=== PATIENT | female | born 1975 | race African-American/Black ===

== ENCOUNTER 2020-06-04 20:12 | Emergency (ER) | payer SELFPAY ==
[2020-06-04] MEDS ORDERED: predniSONE 20 MG TABLET PO STA (20:55)
[2020-06-04] MEDS ORDERED: IPRATROPIUM/ALBUTEROL 3 ML NEB INH STA (20:55)
[2020-06-04] MEDS ORDERED: ALBUTEROL NEB 2.5 MG/3 ML INH STA (21:29)
[2020-06-04 22:35] VITALS: BP 169/110
--- NOTE | 2020-06-04 22:38 | ED Physician Documentation ---
History of Present Illness - Stated complaint Stated Complaint: SOA - Chief complaint Chief Complaint: Resp - History obtained from History obtained from: Patient - Additonal information Additional information: Patient comes emergency department complaining of an asthma exacerbation, which she believes was set off by the climate here in [place]. The patient has just traveled from [place] to be with her family and states that when she got off the plane, she began to notice that her breathing was acting Up, but when she got into the outside air, and got even worse. Patient is on several medica tions for asthma, including 3 times daily nebulizer treatments. She is not a smoker. She states that she has brought her medications with her, but they did not seem to be improving her symptoms today, so she came in. The patient states that she is almost out of her medications, as well. No fevers or chills. No cough. No symptoms that are unusual in terms of the patient's asthma exacerbations. No other complaints at this time. Review of Systems Ten Systems: 10 systems reviewed and negative Constitutional: reports: Reviewed and negative Eyes: reports: Reviewed and negative Ears: reports: Reviewed and negative Nose: reports: Reviewed and negative Throat: reports: Reviewed and negative Cardiac: reports: Reviewed and negative Respiratory: reports: Dyspnea GI: reports: Reviewed and negative : reports: Reviewed and negative Skin: reports: Reviewed and negative Musculoskeletal: reports: Reviewed and negative Neurologic: reports: Reviewed and negative Psychiatric: reports: Reviewed and negative Endocrine: reports: Reviewed and negative Immunocompromised: reports: Reviewed and negative PD PAST MEDICAL HISTORY - Past Medical History Past Medical History: Yes Cardiovascular: Hypertension Respiratory: Asthma Neuro: None Endocrine/Autoimmune: Type 2 diabetes, HyPOthyroidism GI: None 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 : None HEENT: None Psych: None Musculoskeletal: None Derm: None - Present Medications Home Medications: Ambulatory Orders Medication Instructions Recorded Confirmed Albuterol 06/04/20 Albuterol 2.5 mg INH Q4H PRN #30 neb 06/04/20 Albuterol Sulfate [Proair Hfa 06/04/20 Inhaler] Albuterol Sulfate [Proair Hfa 06/04/20 06/04/20 Inhaler] Albuterol Sulfate [Proair Hfa 1 - 2 puffs INH Q4H PRN #1 inhaler 06/04/20 Inhaler] Colchicine [Colcrys] 06/04/20 Cyclobenzaprine [Flexeril] PRN 06/04/20 06/04/20 Hydrocortisone 1% Oint 06/04/20 [Hydrocortisone] Losartan [Cozaar] 06/04/20 Metoprolol Tartrate [Lopressor] 06/04/20 Mometasone/Formoterol [Dulera 100 06/04/20 Mcg-5 Mcg Inhaler] Mometasone/Formoterol [Dulera 100 13 gm IH BID #1 hfa.aer.ad 06/04/20 Mcg-5 Mcg Inhaler] amLODIPine [Norvasc] 06/04/20 hydroCHLOROthiazide [Hydrodiuril] 06/04/20 06/04/20 - Allergies Allergies/Adverse Reactions: Allergies Allergy/AdvReac Type Severity Reaction Status Date / Time pollen extracts Allergy Mild Hives Verified 06/04/20 20:24 chicken derived Allergy Respiratory Verified 06/04/20 20:25 ketchup Allergy Respiratory Verified 06/04/20 20:25 mustard Allergy Respiratory Verified 06/04/20 20:25 pineapple Allergy Respiratory Verified 06/04/20 20:25 shellfish derived Allergy Respiratory Verified 06/04/20 20:25 - Social History Does the pt smoke?: No Smoking Status: Never smoker PD ED PE NORMAL - Vitals Vital signs reviewed: Yes - General General: Alert and oriented X 3, No acute distress - HEENT HEENT: Atraumatic, PERRL, EOMI, Moist mucous membranes - Neck Neck: Supple, no meningeal sign - Cardiac Cardiac: RRR, No murmur - Respiratory Respiratory: No respiratory distress, Other (Moderate expiratory wheezing throughout bilateral lung montes.) - Abdomen Abdomen: Soft, Non tender, Non distended - Derm Derm: Normal color, Warm and dry, No rash - Extremities Extremities: No deformity, No edema, No calf tenderness / cord - Neuro Neuro: Alert and oriented X 3, placement interviewer 2-12 intact, No motor deficit, Normal speech - Psych Psych: Normal mood, Normal affect Results - Vitals Vitals: Vital Signs - 24 hr 06/04/20 06/04/20 06/04/20 20:14 21:19 22:35 Temperature 36.5 C Heart Rate 101 H 91 108 H Respiratory 22 20 Rate Blood Pressure 174/102 H 169/110 H O2 Saturation 97 99 Oxygen O2 Source Room air PD MEDICAL DECISION MAKING - ED course Complexity details: considered differential, d/w patient ED course: The patient was treated with a DuoNeb and 2 albuterol nebs, as well. She was also given a dose of prednisone in the ED. The patient was found to be feeling quite a bit better after this. I have refilled all of her asthma medications. We have discussed the usual indications for return. Departure - Departure Disposition: 01 Home, Self Care Clinical Impression: Asthma exacerbation Condition: Stable Instructions: Asthma Dc Prescriptions: Albuterol 2.5 mg INH Q4H PRN #30 neb PRN Reason: Wheezing Mometasone/Formoterol [Dulera 100 Mcg-5 Mcg Inhaler] 13 gm IH BID #1 hfa.aer.ad Albuterol Sulfate [Proair Hfa Inhaler] 1 - 2 puffs INH Q4H PRN #1 inhaler PRN Reason: Shortness Of Air/Wheezing Discharge Date/Time: 06/04/20 22:42
== END 2020-06-04 22:42 | disposition home or self-care (01) ==
LOC: ED 20:12
DX: J45.901 Unspecified asthma with (acute) exacerbation (principal); I10 Essential (primary) hypertension; E11.9 Type 2 diabetes mellitus without complications
CPT/HCPCS: 94640; 99283; 99284; J7512

== ENCOUNTER 2020-06-08 18:21 | Observation (INO) | payer SELFPAY ==
[2020-06-08] MEDS ORDERED: DEXAMETHASONE 10 MG/ML VIAL IV STA (19:14)
[2020-06-08] MEDS ORDERED: ALBUTEROL NEB 2.5 MG/3 ML INH STA (19:14)
[2020-06-08] MEDS ORDERED: IPRATROPIUM/ALBUTEROL 3 ML NEB INH STA (19:14)
--- NOTE | 2020-06-08 19:22 | ED Physician Documentation ---
History of Present Illness - Stated complaint Stated Complaint: ASTHMA ATTACK - Chief complaint Chief Complaint: Resp - History obtained from History obtained from: Patient - Additonal information Additional information: Patient returns emergency department after being seen about 5 days ago for chief complaint of asthma exacerbation. The patient is visiting here from [place] and states that ever since she came here and started to breathe the air here, she felt as though her asthma was bothering her more. Patient states that since being seen here on Wednesday night, she was doing a little bit better, but then yesterday, began to feel after dinner as though she was having another asthma laceration. Patient states she is tried taking her medications over the past 24 hours, but they do not seem to be helping. Patient states she was not able to get her Dulera filled because it is very expensive here, and opted to wait until she gets back to [place]. She has been taking her nebulizer treatments and albuterol inhaler, however. Patient states that she has not had any fevers and is not coughing up any sputum. She states her symptoms feel like previous asthma exacerbations. No known Covid exposure. No other complaints at this time. Review of Systems Ten Systems: 10 systems reviewed and negative Constitutional: reports: Reviewed and negative Eyes: reports: Reviewed and negative Ears: reports: Reviewed and negative Nose: reports: Reviewed and negative Throat: reports: Reviewed and negative Cardiac: reports: Reviewed and negative Respiratory: reports: Dyspnea, Wheezing GI: reports: Reviewed and negative : reports: Reviewed and negative Skin: reports: Reviewed and negative Musculoskeletal: reports: Reviewed and negative Neurologic: reports: Reviewed and negative Psychiatric: reports: Reviewed and negative Endocrine: reports: Reviewed and negative Immunocompromised: reports: Reviewed and negative PD PAST MEDICAL HISTORY - Past Medical History Past Medical History: Yes Cardiovascular: Hypertension Respiratory: Asthma Neuro: None Endocrine/Autoimmune: Type 2 diabetes, HyPOthyroidism GI: None 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 : None HEENT: None Psych: None Musculoskeletal: None Derm: None - Past Surgical History Past Surgical History: No - Present Medications Home Medications: Ambulatory Orders Medication Instructions Recorded Confirmed Albuterol 06/04/20 Albuterol 2.5 mg INH Q4H PRN #30 neb 06/04/20 Albuterol Sulfate [Proair Hfa 06/04/20 Inhaler] Albuterol Sulfate [Proair Hfa 06/04/20 06/04/20 Inhaler] Albuterol Sulfate [Proair Hfa 1 - 2 puffs INH Q4H PRN #1 inhaler 06/04/20 Inhaler] Colchicine [Colcrys] 06/04/20 Cyclobenzaprine [Flexeril] PRN 06/04/20 06/04/20 Hydrocortisone 1% Oint 06/04/20 [Hydrocortisone] Losartan [Cozaar] 06/04/20 Metoprolol Tartrate [Lopressor] 06/04/20 Mometasone/Formoterol [Dulera 100 06/04/20 Mcg-5 Mcg Inhaler] Mometasone/Formoterol [Dulera 100 13 gm IH BID #1 hfa.aer.ad 06/04/20 Mcg-5 Mcg Inhaler] amLODIPine [Norvasc] 06/04/20 hydroCHLOROthiazide [Hydrodiuril] 06/04/20 06/04/20 predniSONE [Deltasone] 60 mg PO DAILY 5 Days tablet 06/08/20 - Allergies Allergies/Adverse Reactions: Allergies Allergy/AdvReac Type Severity Reaction Status Date / Time pollen extracts Allergy Mild Hives Verified 06/08/20 18:44 chicken derived Allergy Respiratory Verified 06/08/20 18:44 ketchup Allergy Respiratory Verified 06/08/20 18:44 mustard Allergy Respiratory Verified 06/08/20 18:44 pineapple Allergy Respiratory Verified 06/08/20 18:44 shellfish derived Allergy Respiratory Verified 06/08/20 18:44 - Social History Does the pt smoke?: No Smoking Status: Never smoker PD ED PE NORMAL - Vitals Vital signs reviewed: Yes - General General: Alert and oriented X 3, No acute distress - HEENT HEENT: Atraumatic, PERRL, EOMI, Moist mucous membranes - Neck Neck: Supple, no meningeal sign - Cardiac Cardiac: RRR, No murmur - Respiratory Respiratory: Other (Moderate respiratory distress, with labored respirations and tripoding; moderate expiratory wheezes with prolonged expiratory phase throughout all lung montes bilaterally.) - Abdomen Abdomen: Soft, Non tender, Non distended - Derm Derm: Normal color, Warm and dry, No rash - Extremities Extremities: No deformity, No edema, No calf tenderness / cord - Neuro Neuro: Alert and oriented X 3, temporary receptionist 2-12 intact - Psych Psych: Normal mood, Normal affect Results - Vitals Vitals: Vital Signs - 24 hr 12/26/20 12/26/20 12/26/20 18:23 18:44 20:16 Temperature 36.6 C 36.8 C Heart Rate 123 H 115 H 114 H Respiratory 18 28 H 23 Rate Blood Pressure 158/112 H 158/112 H O2 Saturation 93 92 06/08/20 20:44 Temperature 36.7 C Heart Rate 111 H Respiratory 22 Rate Blood Pressure 133/82 H O2 Saturation 93 Oxygen O2 Source Room air - EKG (time done) 1931 Rate: Rate (enter#) (121) Rhythm: Sinus tachycardia [place]: Normal Intervals: Normal DE QRS: Normal Ischemia: Normal ST segments. No: T wave inversion Compare to prior EKG: Old EKG unavailable Computer interpretation: Agree with computer - Labs Labs: Laboratory Tests 06/08/20 06/08/20 06/08/20 19:58 19:58 19:58 WBC 11.8 H RBC 2.92 L Hgb 7.4 L Hct 24.9 L MCV 85.3 MCH 25.3 L MCHC 29.7 L RDW 14.7 Plt Count 379 MPV 9.9 Neut # (Auto) Not Reportable Lymph # (Auto) Not Reportable [place] # (Auto) Not Reportable Eos # (Auto) Not Reportable Baso # (Auto) Not Reportable Absolute Nucleated RBC Not Reportable Total Counted 100 Band Neuts % (Manual) 1 Abnorm Lymph % (Manual) 0 Nucleated RBC % Not Reportable Neutrophils # (Manual) 7.6 H Lymphocytes # (Manual) 1.8 Monocytes # (Manual) 0.2 Eosinophils # (Manual) 2.1 H Basophils # (Manual) 0.1 Differential Comment MANUAL DIFFERENTIAL Platelet Estimate NORMAL (130-450,000) Platelet Morphology NORMAL APPEARANCE RBC Morph Micro Appear 2+ HYPOCHROMASIA Sodium 139 Potassium 3.9 Chloride 105 Carbon Dioxide 25 Anion Gap 9.0 BUN 8 Creatinine 0.8 Estimated GFR (MDRD) 93 Glucose 119 H Calcium 9.1 Total Bilirubin 0.2 AST 27 ALT 21 Alkaline Phosphatase 45 B-Natriuretic Peptide 15 Total Protein 7.1 Albumin 3.8 Globulin 3.3 Albumin/Globulin Ratio 1.2 Lipase 23 - Rads (name of study) CXR Radiology: Final report received, EMP read indepedently, See rad report (neg) PD MEDICAL DECISION MAKING - ED course Complexity details: reviewed old records, reviewed results, re-evaluated patient, considered differential, d/w patient ED course: The patient was treated with a DuoNeb, +2 albuterol nebulizer treatments. She was also given IV Decadron 20 mg IV. Her initial oxygen saturation had been around 94% on room air when I examined her, and had improved to the upper 90s on room air after treatments. However, it was noted that whenever the patient moved around, or exerted herself slightly, her oxygen saturation would drop back into the low 90s. Additionally, the patient still had significant wheezing throughout all lung montes, though this was slightly improved and the patient did clinically feel seem a little better than she had. It would probably benefit her to stay in the hospital for at least an observation admission to be sure she was turning around better. The patient stated that she felt nervous to go home and thought this would be a good idea. She had been worked up with laboratory studies in the emergency department, which showed a mildly elevated white blood cell count and signficant anemia with a hemoglobin of 7.4. Her chest x-ray had been found to be negative. Respiratory PCR was added, and I did speak with Dr. Neumann, who did agree to admit the patient to his service. Departure - Departure Disposition: ED Place in Observation Clinical Impression: Asthma exacerbation Qualifiers: Asthma severity: moderate Asthma persistence: persistent Qualified Code(s): J45.41 - Moderate persistent asthma with (acute) exacerbation Anemia Qualifiers: Anemia type: unspecified type Qualified Code(s): D64.9 - Anemia, unspecified Condition: Serious
--- NOTE | 2020-06-08 19:45 | XRAY Report ---
PROCEDURE: Chest 1 View X-Ray INDICATIONS: dyspnea TECHNIQUE: One view of the chest was acquired. COMPARISON: None FINDINGS: Surgical changes and devices: None. Lungs and pleura: No pleural effusions or pneumothorax. Lungs are clear. Mediastinum: Mediastinal contours appear normal. Heart size is normal. Bones and chest wall: No suspicious bony lesions. Overlying soft tissues appear unremarkable. IMPRESSION: No acute process. Reviewed by: Love Yoon MD on 06/08/2020 7:44 PM PST Approved by: Love Yoon MD on 06/08/2020 7:44 PM PST Station ID: [id number]
[2020-06-08 20:03] LABS: BASOPHILS % (AUTO) 0.5 %; EOSINOPHILS % (AUTO) 23.1 %; HGB - HEMOGLOBIN 7.4 g/dL (12.0-16.0); LYMPHOCYTES % (AUTO) 18.5 %; MEAN CORPUSCULAR HEMOGLOBIN 25.3 pg (27.0-31.0); MEAN CORPUSCULAR HGB CONC 29.7 g/dL (32.0-36.0); MEAN CORPUSCULAR VOLUME 85.3 fL (81.0-99.0); MEAN PLATELET VOLUME 9.9 fL (7.9-10.8); MONOCYTES % (AUTO) 3.9 %; NEUTROPHILS % (AUTO) 53.7 %; PLT - PLATELET COUNT 379 10^3/uL (130-450); RED BLOOD COUNT 2.92 10^6/uL (4.20-5.40); RED CELL DISTRIBUTION WIDTH 14.7 % (12.0-15.0); WHITE BLOOD COUNT 11.8 x10^3/uL (4.8-10.8)
[2020-06-08 20:09] LABS: ABNORMAL LYMPHS % (MANUAL) 0 %
[2020-06-08 20:19] LABS: ALBUMIN 3.8 g/dL (3.2-5.5); ALBUMIN/GLOBULIN RATIO 1.2 (1.0-2.2); BILIRUBIN,TOTAL 0.2 mg/dL (0.2-1.0); CALCIUM 9.1 mg/dL (8.5-10.3); CREATININE 0.8 mg/dL (0.4-1.0); TOTAL PROTEIN 7.1 g/dL (6.7-8.2)
[2020-06-08 20:24] LABS: BAND NEUTROPHILS % (MANUAL) 1 %; BASOPHILS # (MANUAL) 0.1 10^3/uL (0-0.1); BASOPHILS % (MANUAL) 1 %; DIFFERENTIAL COMMENT MANUAL DIFFERENTIAL; EOSINOPHILS # (MANUAL) 2.1 10^3/uL (0-0.7); LYMPHOCYTES # (MANUAL) 1.8 10^3/uL (1.5-3.5); LYMPHOCYTES % (MANUAL) 15 %; MONOCYTES # (MANUAL) 0.2 10^3/uL (0.0-1.0); PLATELET ESTIMATE, MANUAL NORMAL (130-450,000) (NORMAL); PLATELET MORPHOLOGY NORMAL APPEARANCE (NORMAL); RBC MORPHOLOGY (MULTIPLE) 2+ HYPOCHROMASIA (NORMAL)
[2020-06-08] MEDS ORDERED: SODIUM CHLORIDE FLUSH 0.9% 10 ML SYRINGE IVP PRN (21:55)
[2020-06-08] MEDS ORDERED: ALBUTEROL NEB 2.5 MG/3 ML INH PRN (22:02)
--- NOTE | 2020-06-08 22:05 | HISTORY & PHYSICAL EXAMINATION ---
Chief Complaint - Chief Complaint Chief Complaint: dyspnea, wheezing History of Present Illness - Admitted From Admitted From:: [facility] ED - History Obtained From Records Reviewed: yes History obtained from: patient - History of Present Illness HPI Comment/Other: Patient is a 45-year-old female with medical history significant for asthma, CHF, diabetes mellitus, hypertension and diabetic neuropathy who presented to the ED with complaint of dyspnea and wheezing. Her symptoms initially started on Wednesday(4 days ago). She presented to the ED where she received treatment, felt better and was discharged home. She was advised to return if her symptoms worsened again. Today around 3 PM she started experiencing dyspnea again which did not improve with albuterol at home. As a result she returned to the ED. She was given Decadron 20 mg, DuoNeb and albuterol x2 however she remained significantly wheezy on auscultation of the lungs. She is visiting her son in [facility] and is originally from [place]. She thinks the sudden climate change is a stressor to her system and triggering her exacerbations. Also she is out of her Dulera and intends to get a refill when she returns home in 4 days. At bedside she is awake and resting comfortably. She denies chest pain, abdominal pain, nausea, vomiting, fever or chills. 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 Her siblings have diabetes mellitus and kidney disease. Meds/Allgy - Home Medications Home Medications: Ambulatory Orders Medication Instructions Recorded Confirmed Albuterol 06/04/20 Albuterol 2.5 mg INH Q4H PRN #30 neb 06/04/20 Albuterol Sulfate [Proair Hfa 06/04/20 Inhaler] Albuterol Sulfate [Proair Hfa 06/04/20 06/04/20 Inhaler] Albuterol Sulfate [Proair Hfa 1 - 2 puffs INH Q4H PRN #1 inhaler 06/04/20 Inhaler] Colchicine [Colcrys] 06/04/20 Cyclobenzaprine [Flexeril] PRN 06/04/20 06/04/20 Hydrocortisone 1% Oint 06/04/20 [Hydrocortisone] Losartan [Cozaar] 06/04/20 Metoprolol Tartrate [Lopressor] 06/04/20 Mometasone/Formoterol [Dulera 100 06/04/20 Mcg-5 Mcg Inhaler] Mometasone/Formoterol [Dulera 100 13 gm IH BID #1 hfa.aer.ad 06/04/20 Mcg-5 Mcg Inhaler] amLODIPine [Norvasc] 06/04/20 hydroCHLOROthiazide [Hydrodiuril] 06/04/20 06/04/20 predniSONE [Deltasone] 60 mg PO DAILY 5 Days tablet 06/08/20 - Allergies Allergies/Adverse Reactions: Allergies Allergy/AdvReac Type Severity Reaction Status Date / Time pollen extracts Allergy Mild Hives Verified 06/08/20 18:44 chicken derived Allergy Respiratory Verified 06/08/20 18:44 ketchup Allergy Respiratory Verified 06/08/20 18:44 mustard Allergy Respiratory Verified 06/08/20 18:44 pineapple Allergy Respiratory Verified 06/08/20 18:44 shellfish derived Allergy Respiratory Verified 06/08/20 18:44 Review of Systems - Constitutional Constitutional: denies: Fatigue, Fever, Chills, Malaise - Eyes Eyes: denies: Pain, Vision loss, Dipolpia - Ears, Nose & Throat Ears, Nose & Throat: denies: Ear pain, Hoarseness - Cardiovascular Cariovascular: denies: Irregular heart rate, Chest pain, Edema, Lightheadedness, Syncope - Respiratory Respiratory: reports: Wheezing, SOB at rest. denies: Cough, Sputum production, SOB with exertion - Gastrointestinal Gastrointestinal: denies: Abdominal pain, Abdominal distention, Constipation, Nausea, Vomiting, Coffee grounds emesis, Reflux/heartburn - Genitourinary Genitourinary: denies: Dysuria, Frequency, Urgency, Hematuria, Incontinence, Flank pain - Musculoskeletal Musculoskeletal: denies: Muscle pain, Back pain, Muscle aches, Stiffness, Limited range of motion - Integumentary Integumentary: denies: Rash, Pruritis, Lesions - Neurological Neurological: denies: General weakness, Focal weakness, Headache, Dizziness - Psychiatric Psychiatric: denies: Depression, Anxiety, Suicidal - Endocrine Endocrine: denies: Polyuria, Polydypsia - Hematologic/Lymphatic Hematologic/Lymphatic: reports: Anemia. denies: Bruising, Petechiae Prior Level of Functionality: Patient is normally independent of activities of daily living Exam - Vital Signs Vital Signs: Vital Signs x48h Temp Pulse Resp BP Pulse Ox 06/08/20 20:44 36.7 C 111 H 22 133/82 H 93 06/08/20 20:16 114 H 23 06/08/20 18:44 36.8 C 115 H 28 H 158/112 H 92 06/08/20 18:23 36.6 C 123 H 18 158/112 H 93 - Physical Exam General Appearance: positive: Alert, Mild distress Eyes Bilateral: positive: PERRL, EOMI ENT: positive: No signs of dehydration Neck: positive: No JVD, Trachea midline Respiratory: positive: Chest non-tender, No respiratory distress, Wheezes Cardiovascular: positive: No murmur, Tachycardia Abdomen: positive: Non-tender, No organomegaly, Nml bowel sounds, No distention. negative: Guarding, Rebound Skin: positive: Color nml, No rash, Warm, Dry Extremities: positive: Non-tender, Full ROM, Nml appearance, No pedal edema Neurologic/Psychiatric: positive: Oriented x3, Mood/affect nml Conclusion/Plan - Problem List (1) Asthma exacerbation Conclusion/Plan: Patient was given Decadron 20 mg IV in the ED. She also received DuoNeb and albuterol x2. DuoNeb every 4 hours scheduled has been ordered. Albuterol every 4 hours as needed has been ordered. Methylprednisolone 40 mg IV 3 times daily. Patient is breathing comfortably on room air however she still sounds significantly wheezy on auscultation. Qualifiers: Asthma severity: moderate Asthma persistence: persistent Qualified Code(s): J45.41 - Moderate persistent asthma with (acute) exacerbation (2) Anemia Conclusion/Plan: Etiology undetermined. Hemoglobin was 7.4. We will do iron studies and check VitB12 and folate as well Qualifiers: Anemia type: unspecified type Qualified Code(s): D64.9 - Anemia, unspecified (3) Diabetes mellitus Conclusion/Plan: Patient is on Metformin at home. Will resume once verified. Accu-Cheks before every meal and at bedtime. Qualifiers: Diabetes mellitus type: type 2 (4) Hypertension Conclusion/Plan: Patient is on amlodipine, metoprolol and losartan. Will resume once verified. (5) CHF (congestive heart failure) Conclusion/Plan: Not in exacerbation. Patient is on losartan and metoprolol. We will continue once verified. (6) Diabetic neuropathy Conclusion/Plan: Patient is on gabapentin - Lab Results Fish Bones: 06/08/20 19:58 06/08/20 19:58 Core Measures - Anticipated LOS I expect patient to be DC'd or transferred within 96 hours.: Yes - DVT/VTE - Prophylaxis VTE/DVT Device ordered at admit?: Yes VTE/DVT Prophylaxis med ordered at admit?: Yes
[2020-06-08 22:47] LABS: C. PNEUMONIAE- RESP PCR PANEL NOT DETECTED
[2020-06-08] MEDS: SODIUM CHLORIDE FLUSH 0.9% 10 ML SYRINGE IVP SCH (23:49)
[2020-06-09] MEDS ORDERED: IPRATROPIUM/ALBUTEROL 3 ML NEB INH SCH ×2 (01:00→07:00)
[2020-06-09] MEDS: methylPREDNISolone SUCCINATE 40 MG/ML VIAL IVP SCH ×3 (01:11→17:13)
[2020-06-09] MEDS: IPRATROPIUM/ALBUTEROL 3 ML NEB INH SCH ×5 (04:47→19:30)
[2020-06-09 05:48] LABS: CALCIUM 9.2 mg/dL (8.5-10.3); CREATININE 0.8 mg/dL (0.4-1.0)
[2020-06-09] MEDS ORDERED: IRON DEXTRAN 200 MG in SODIUM CHLORIDE 0.9% 100ML 100 ML IV ONE (07:28)
[2020-06-09 07:37] LABS: BASOPHILS % (AUTO) 0.3 %; EOSINOPHILS % (AUTO) 0.3 %; HGB - HEMOGLOBIN 7.1 g/dL (12.0-16.0); LYMPHOCYTES # (AUTO) 0.9 10^3/uL (1.5-3.5); LYMPHOCYTES % (AUTO) 7.8 %; MEAN CORPUSCULAR HEMOGLOBIN 25.1 pg (27.0-31.0); MEAN CORPUSCULAR HGB CONC 29.7 g/dL (32.0-36.0); MEAN CORPUSCULAR VOLUME 84.5 fL (81.0-99.0); MEAN PLATELET VOLUME 9.5 fL (7.9-10.8); MONOCYTES # (AUTO) 0.1 10^3/uL (0.0-1.0); MONOCYTES % (AUTO) 0.4 %; NEUTROPHILS # (AUTO) 10.7 10^3/uL (1.5-6.6); NEUTROPHILS % (AUTO) 90.1 %; PLT - PLATELET COUNT 356 10^3/uL (130-450); RED BLOOD COUNT 2.83 10^6/uL (4.20-5.40); WHITE BLOOD COUNT 11.9 x10^3/uL (4.8-10.8)
[2020-06-09] MEDS ORDERED: SODIUM CHLORIDE 0.9% IV ONE ×3 (08:59→11:00)
[2020-06-09] MEDS ORDERED: IRON DEXTRAN IV ONE ×3 (08:59→11:00)
[2020-06-09] MEDS ORDERED: ENOXAPARIN 40 MG/0.4 ML SYRINGE SUBQ SCH (09:00)
--- NOTE | 2020-06-09 09:02 | PROVIDER PROGRESS NOTE ---
Subjective - Prog Note Date Prog Note Date: 06/09/20 - Subjective Subjective: She feels much improved compared to yesterday but still feels short of breath at times. Still has wheezing. Denies any dark tarry stools. She states she just finished her menstrual cycle 2 days ago and it is normally quite heavy. She does have a history of iron deficiency anemia but she forgot to pack her iron supplementation with her on this trip. She has never received a transfusion in the past. Current Medications - Current Medications Current Medications: Active Medications Acetaminophen (Acetaminophen 325 Mg Tablet) 650 mg PO Q4HR PRN PRN Reason: Pain 1 to 4 Albuterol (Albuterol Neb 2.5 Mg/3 Ml) 2.5 mg INH RTQ4H PRN PRN Reason: Wheezing Last Admin: 06/08/20 23:55 Dose: 2.5 mg Documented by: Albuterol/Ipratropium (Ipratropium/Albuterol 3 Ml Neb) 3 ml INH RTQ4H KEILY Last Admin: 06/09/20 04:47 Dose: 3 ml Documented by: Enoxaparin Sodium (Enoxaparin 40 Mg/0.4 Ml Syringe) 40 mg SUBQ DAILY [facility] Last Admin: 06/09/20 08:13 Dose: 40 mg Documented by: Ferrous Sulfate (Ferrous Sulfate 325 Mg Tablet) 325 mg PO BIDWM [facility] Iron Dextran 200 mg/ Sodium (Chloride) 104 mls @ 208 mls/hr IV ONCE ONE Stop: 06/09/20 07:57 Iron Dextran 800 mg/ Sodium (Chloride) 116 mls @ 208 mls/hr IV ONCE ONE Stop: 06/09/20 09:28 Insulin Aspart (Insulin Aspart 300 Unit/3 Ml Pen) 1 - 9 unit SUBQ 0 800,1200,1700,2100 [facility]; Protocol Methylprednisolone (Methylprednisolone Succinate 40 Mg/Ml Vial) 40 mg IVP Q8H KEILY Stop: 06/09/20 23:00 Last Admin: 06/09/20 01:11 Dose: 40 mg Documented by: Prednisone (Prednisone 20 Mg Tablet) 40 mg PO DAILYWM [facility] Sodium Chloride (Sodium Chloride Flush 0.9% 10 Ml Syringe) 10 ml IVP PRN PRN PRN Reason: NEEDED PER PROVIDER ORDERS Sodium Chloride (Sodium Chloride Flush 0.9% 10 Ml Syringe) 10 ml IVP 0100,0900,1700 [facility] Last Admin: 06/08/20 23:49 Dose: 10 ml Documented by: Cyclobenzaprine [Flexeril] 10 mg PO DAILY 06/04/20 Losartan [Cozaar] 50 mg PO DAILY 06/04/20 Metoprolol Tartrate [Lopressor] 25 mg PO BID 06/04/20 hydroCHLOROthiazide [Hydrodiuril] 12.5 mg PO DAILY 06/04/20 Amlodipine Besylate [Norvasc] 10 mg PO DAILY 06/09/20 Atorvastatin [Lipitor] 20 mg PO DAILY 06/09/20 Colchicine 0.6 mg PO .DAILY FOR 3 DAYS 06/09/20 Famotidine [Pepcid] 40 mg PO DAILY 06/09/20 Ferrous Sulfate 325 mg PO DAILY 06/09/20 Gabapentin [Neurontin] 100 mg PO DAILY 06/09/20 HYDROcodone/ACET 10/325 [[place] 10 mg/325 mg] 1 each PO BID PRN 06/09/20 Meloxicam [Mobic] 15 mg PO DAILY 06/09/20 Simvastatin [Zocor] 40 mg PO QPM 06/09/20 Objective - Vital Signs/Intake & Output Reviewed Vital Signs: Yes Vital Signs: Vital Signs x48h Temp Pulse Pulse Resp BP Pulse Ox 06/09/20 05:26 36.5 C 101 H 20 97 06/09/20 05:05 36.5 C 101 H 20 134/83 H 97 06/09/20 04:50 113 H 18 - Objective General Appearance: positive: No acute distress, Alert Eyes Bilateral: positive: Normal inspection, Conjunctivae nml ENT: positive: ENT inspection nml Neck: positive: Nml inspection Respiratory: positive: No respiratory distress, Wheezes (Still has faint expiratory wheezes throughout.). negative: Rales Cardiovascular: positive: Tachycardia. negative: Irregularly irregular, Systolic murmur Abdomen: positive: Non-tender, No distention. negative: Tenderness Skin: positive: Warm, Dry Extremities: positive: Full ROM, No pedal edema Neurologic/Psychiatric: positive: Oriented x3, Motor nml - Lab Results Fish Bones: 06/09/20 07:32 06/09/20 04:52 Other Labs: Lab Results x24hrs 06/09/20 06/09/20 06/09/20 Range/Units 07:32 06:29 04:52 WBC 11.9 H Cancelled (4.8-10.8) x10^3/uL RBC 2.83 L Cancelled (4.20-5.40) 10^6/uL Hgb 7.1 L Cancelled (12.0-16.0) g/dL Hct 23.9 L Cancelled (37.0-47.0) % MCV 84.5 Cancelled (81.0-99.0) fL MCH 25.1 L Cancelled (27.0-31.0) pg MCHC 29.7 L Cancelled (32.0-36.0) g/dL RDW 15.0 Cancelled (12.0-15.0) % Plt Count 356 Cancelled (130-450) 10^3/uL MPV 9.5 Cancelled (7.9-10.8) fL Neut # (Auto) 10.7 H Cancelled Lymph # (Auto) 0.9 L Cancelled [place] # (Auto) 0.1 Cancelled Eos # (Auto) 0.0 Cancelled Baso # (Auto) 0.0 Cancelled Absolute Nucleated RBC 0.03 Cancelled Total Counted Band Neuts % (Manual) (0 - 10) % Abnorm Lymph % (Manual) % Nucleated RBC % 0.3 Cancelled Neutrophils # (Manual) (1.5-6.6) 10^3/uL Lymphocytes # (Manual) (1.5-3.5) 10^3/uL Monocytes # (Manual) (0.0-1.0) 10^3/uL Eosinophils # (Manual) (0-0.7) 10^3/uL Basophils # (Manual) (0-0.1) 10^3/uL Differential Comment Manual Slide Review Cancelled WBC Morphology Cancelled Platelet Estimate Cancelled (NORMAL) Platelet Morphology Cancelled (NORMAL) RBC Morph Micro Appear Cancelled (NORMAL) Sodium (135-145) mmol/L Potassium (3.5-5.0) mmol/L Chloride (101-111) mmol/L Carbon Dioxide (21-32) mmol/L Anion Gap (6-13) BUN (6-20) mg/dL Creatinine (0.4-1.0) mg/dL Estimated GFR (MDRD) (>89) Glucose (70-100) mg/dL Calcium (8.5-10.3) mg/dL Iron (28-170) ug/dL TIBC (250-450) ug/dL % Saturation (20-50) % Transferrin (192-382) mg/dL Total Bilirubin (0.2-1.0) mg/dL AST (10-42) IU/L ALT (10-60) IU/L Alkaline Phosphatase (42-121) IU/L B-Natriuretic Peptide (5-100) pg/mL Total Protein (6.7-8.2) g/dL Albumin (3.2-5.5) g/dL Globulin (2.1-4.2) g/dL Albumin/Globulin Ratio (1.0-2.2) Lipase (22-51) U/L Vitamin B12 391 (180-914) pg/mL Nasal Adenovirus (PCR) Nasal B. parapertussis DNA (PCR) Nasal Coronavir 229E PCR Nasal Coronavir HKU1 PCR Nasal Coronavir NL63 PCR Nasal Coronavir OC43 PCR Nasal Enterovir/Rhinovir PCR Nasal Influenza B PCR Nasal Influenza A PCR Nasal Parainfluen 1 PCR Nasal Parainfluen 2 PCR Nasal Parainfluen 3 PCR Nasal Parainfluen 4 PCR Nasal RSV (PCR) Nasal B.pertussis DNA PCR Nasal C.pneumoniae (PCR) Jonn Human Metapneumo PCR Nasal M.pneumoniae (PCR) Nasal SARS-CoV-2 (PCR) Slides for Path Review Cancelled 06/09/20 06/08/20 06/08/20 Range/Units 04:52 21:52 19:58 WBC (4.8-10.8) x10^3/uL RBC (4.20-5.40) 10^6/uL Hgb (12.0-16.0) g/dL Hct (37.0-47.0) % MCV (81.0-99.0) fL MCH (27.0-31.0) pg MCHC (32.0-36.0) g/dL RDW (12.0-15.0) % Plt Count (130-450) 10^3/uL MPV (7.9-10.8) fL Neut # (Auto) Lymph # (Auto) [place] # (Auto) Eos # (Auto) Baso # (Auto) Absolute Nucleated RBC Total Counted Band Neuts % (Manual) (0 - 10) % Abnorm Lymph % (Manual) % Nucleated RBC % Neutrophils # (Manual) (1.5-6.6) 10^3/uL Lymphocytes # (Manual) (1.5-3.5) 10^3/uL Monocytes # (Manual) (0.0-1.0) 10^3/uL Eosinophils # (Manual) (0-0.7) 10^3/uL Basophils # (Manual) (0-0.1) 10^3/uL Differential Comment Manual Slide Review WBC Morphology Platelet Estimate (NORMAL) Platelet Morphology (NORMAL) RBC Morph Micro Appear (NORMAL) Sodium 137 (135-145) mmol/L Potassium 4.6 (3.5-5.0) mmol/L Chloride 104 (101-111) mmol/L Carbon Dioxide 24 (21-32) mmol/L Anion Gap 9.0 (6-13) BUN 9 (6-20) mg/dL Creatinine 0.8 (0.4-1.0) mg/dL Estimated GFR (MDRD) 93 (>89) Glucose 181 H (70-100) mg/dL Calcium 9.2 (8.5-10.3) mg/dL Iron 8 L (28-170) ug/dL TIBC 458 H (250-450) ug/dL % Saturation 2 L (20-50) % Transferrin 327 (192-382) mg/dL Total Bilirubin (0.2-1.0) mg/dL AST (10-42) IU/L ALT (10-60) IU/L Alkaline Phosphatase (42-121) IU/L B-Natriuretic Peptide 15 (5-100) pg/mL Total Protein (6.7-8.2) g/dL Albumin (3.2-5.5) g/dL Globulin (2.1-4.2) g/dL Albumin/Globulin Ratio (1.0-2.2) Lipase (22-51) U/L Vitamin B12 (180-914) pg/mL Nasal Adenovirus (PCR) NOT DETECTED Nasal B. parapertussis DNA (PCR) NOT DETECTED Nasal Coronavir 229E PCR NOT DETECTED Nasal Coronavir HKU1 PCR NOT DETECTED Nasal Coronavir NL63 PCR NOT DETECTED Nasal Coronavir OC43 PCR NOT DETECTED Nasal Enterovir/Rhinovir PCR NOT DETECTED Nasal Influenza B PCR NOT DETECTED Nasal Influenza A PCR NOT DETECTED Nasal Parainfluen 1 PCR NOT DETECTED Nasal Parainfluen 2 PCR NOT DETECTED Nasal Parainfluen 3 PCR NOT DETECTED Nasal Parainfluen 4 PCR NOT DETECTED Nasal RSV (PCR) NOT DETECTED Nasal B.pertussis DNA PCR NOT DETECTED Nasal C.pneumoniae (PCR) NOT DETECTED Jonn Human Metapneumo PCR NOT DETECTED Nasal M.pneumoniae (PCR) NOT DETECTED Nasal SARS-CoV-2 (PCR) NOT DETECTED Slides for Path Review 06/08/20 06/08/20 Range/Units 19:58 19:58 WBC 11.8 H (4.8-10.8) x10^3/uL RBC 2.92 L (4.20-5.40) 10^6/uL Hgb 7.4 L (12.0-16.0) g/dL Hct 24.9 L (37.0-47.0) % MCV 85.3 (81.0-99.0) fL MCH 25.3 L (27.0-31.0) pg MCHC 29.7 L (32.0-36.0) g/dL RDW 14.7 (12.0-15.0) % Plt Count 379 (130-450) 10^3/uL MPV 9.9 (7.9-10.8) fL Neut # (Auto) Not Reportable Lymph # (Auto) Not Reportable [place] # (Auto) Not Reportable Eos # (Auto) Not Reportable Baso # (Auto) Not Reportable Absolute Nucleated RBC Not Reportable Total Counted 100 Band Neuts % (Manual) 1 (0 - 10) % Abnorm Lymph % (Manual) 0 % Nucleated RBC % Not Reportable Neutrophils # (Manual) 7.6 H (1.5-6.6) 10^3/uL Lymphocytes # (Manual) 1.8 (1.5-3.5) 10^3/uL Monocytes # (Manual) 0.2 (0.0-1.0) 10^3/uL Eosinophils # (Manual) 2.1 H (0-0.7) 10^3/uL Basophils # (Manual) 0.1 (0-0.1) 10^3/uL Differential Comment MANUAL DIFFERENTIAL Manual Slide Review WBC Morphology Platelet Estimate NORMAL (130-450,000) (NORMAL) Platelet Morphology NORMAL APPEARANCE (NORMAL) RBC Morph Micro Appear 2+ HYPOCHROMASIA (NORMAL) Sodium 139 (135-145) mmol/L Potassium 3.9 (3.5-5.0) mmol/L Chloride 105 (101-111) mmol/L Carbon Dioxide 25 (21-32) mmol/L Anion Gap 9.0 (6-13) BUN 8 (6-20) mg/dL Creatinine 0.8 (0.4-1.0) mg/dL Estimated GFR (MDRD) 93 (>89) Glucose 119 H (70-100) mg/dL Calcium 9.1 (8.5-10.3) mg/dL Iron (28-170) ug/dL TIBC (250-450) ug/dL % Saturation (20-50) % Transferrin (192-382) mg/dL Total Bilirubin 0.2 (0.2-1.0) mg/dL AST 27 (10-42) IU/L ALT 21 (10-60) IU/L Alkaline Phosphatase 45 (42-121) IU/L B-Natriuretic Peptide (5-100) pg/mL Total Protein 7.1 (6.7-8.2) g/dL Albumin 3.8 (3.2-5.5) g/dL Globulin 3.3 (2.1-4.2) g/dL Albumin/Globulin Ratio 1.2 (1.0-2.2) Lipase 23 (22-51) U/L Vitamin B12 (180-914) pg/mL Nasal Adenovirus (PCR) Nasal B. parapertussis DNA (PCR) Nasal Coronavir 229E PCR Nasal Coronavir HKU1 PCR Nasal Coronavir NL63 PCR Nasal Coronavir OC43 PCR Nasal Enterovir/Rhinovir PCR Nasal Influenza B PCR Nasal Influenza A PCR Nasal Parainfluen 1 PCR Nasal Parainfluen 2 PCR Nasal Parainfluen 3 PCR Nasal Parainfluen 4 PCR Nasal RSV (PCR) Nasal B.pertussis DNA PCR Nasal C.pneumoniae (PCR) Jon[place] Human Metapneumo PCR Nasal M.pneumoniae (PCR) Nasal SARS-CoV-2 (PCR) Slides for Path Review ABX Reporting Has patient been on IV antibiotics over the past 48 hours?: No Assessment/Plan - Problem List (1) Asthma exacerbation Impression: She is improved but still has expiratory wheezing and still feels a little short of breath. She has not felt back to her baseline. We will keep her hospitalized overnight and condition her to oral steroids tomorrow morning in preparation for discharge. Continue with duo nebs every 4 hours and albuterol as needed. She will need an inhaled corticosteroid on discharge in addition to albuterol as needed. Qualifiers: Asthma severity: moderate Asthma persistence: persistent Qualified Code(s): J45.41 - Moderate persistent asthma with (acute) exacerbation (2) Iron deficiency anemia Impression: This is likely secondary to her menstrual cycle which just finished 2 days ago. Her hemoglobin is decreased this morning 7.1. Her iron studies are suggestive of iron deficiency anemia. She has never received a transfusion before. We will give her 1000 mg of IV iron today. We will start her on oral iron supplementation tomorrow which she has been out of for 2 weeks. We will recheck her hemoglobin this afternoon. She is agreeable to transfusion if she remains around 7. We will monitor for signs of bleeding. Stool occult has been ordered although she denies dark tarry stools. Qualifiers: Iron deficiency anemia type: chronic blood loss Qualified Code(s): D50.0 - Iron deficiency anemia secondary to blood loss (chronic) (3) Heavy menstrual bleeding Impression: This is the likely source of her iron deficiency anemia. Her menstrual cycle has just ended 2 days ago. Will recommend outpatient [employer] follow-up. Qualifiers: Menorrhagia type: with regular cycle Qualified Code(s): N92.0 - Excessive and frequent menstruation with regular cycle (4) Type 2 diabetes mellitus Impression: She is on Metformin at home. We will check her blood glucose with meals and place her on sliding scale. We will monitor her sugars closely given she is on steroids. We will add Lantus if necessary. (5) Hypertension Impression: Her blood pressure has been stable with systolic in the 130s. We will resume her home and hypertensives once dosing is confirmed by pharmacy.
[2020-06-09] MEDS: SODIUM CHLORIDE FLUSH 0.9% 10 ML SYRINGE IVP SCH ×2 (09:58→16:23)
[2020-06-09] MEDS ORDERED: IRON DEXTRAN 25 MG in SODIUM CHLORIDE 0.9% 50 ML IV ONE (11:00)
[2020-06-09] MEDS ORDERED: IRON DEXTRAN 975 MG in SODIUM CHLORIDE 0.9% 500 ML IV ONE (12:00)
[2020-06-09] MEDS: INSULIN ASPART 300 UNIT/3 ML PEN SUBQ SCH ×3 (12:32→20:49)
[2020-06-09] MEDS: ACETAMINOPHEN 325 MG TABLET PO PRN ×2 (14:26→18:38)
[2020-06-09] MEDS: amLODIPine 5 MG TABLET PO SCH (14:31)
[2020-06-09 15:04] LABS: HGB - HEMOGLOBIN 6.7 g/dL (12.0-16.0)
[2020-06-09] MEDS: ATORVASTATIN 10 MG TABLET PO SCH (20:48)
[2020-06-09] MEDS: METOPROLOL TARTRATE 25 MG TABLET PO SCH (20:48)
[2020-06-10] MEDS: SODIUM CHLORIDE FLUSH 0.9% 10 ML SYRINGE IVP SCH ×3 (00:25→16:13)
[2020-06-10] MEDS: IPRATROPIUM/ALBUTEROL 3 ML NEB INH SCH ×6 (00:42→20:21)
[2020-06-10 05:00] LABS: BASOPHILS % (AUTO) 0.1 %; EOSINOPHILS % (AUTO) 0.1 %; LYMPHOCYTES # (AUTO) 1.2 10^3/uL (1.5-3.5); LYMPHOCYTES % (AUTO) 7.8 %; MEAN CORPUSCULAR HEMOGLOBIN 25.7 pg (27.0-31.0); MEAN CORPUSCULAR HGB CONC 29.9 g/dL (32.0-36.0); MEAN PLATELET VOLUME 10.1 fL (7.9-10.8); MONOCYTES # (AUTO) 0.7 10^3/uL (0.0-1.0); MONOCYTES % (AUTO) 4.6 %; NEUTROPHILS # (AUTO) 13.7 10^3/uL (1.5-6.6); NEUTROPHILS % (AUTO) 85.8 %; PLT - PLATELET COUNT 298 10^3/uL (130-450); RED BLOOD COUNT 2.72 10^6/uL (4.20-5.40); RED CELL DISTRIBUTION WIDTH 15.6 % (12.0-15.0)
[2020-06-10 05:10] LABS: CALCIUM 8.8 mg/dL (8.5-10.3); CREATININE 0.8 mg/dL (0.4-1.0)
[2020-06-10] MEDS: INSULIN ASPART 300 UNIT/3 ML PEN SUBQ SCH ×4 (07:19→21:17)
[2020-06-10] MEDS: predniSONE 20 MG TABLET PO SCH (07:42)
[2020-06-10] MEDS: ACETAMINOPHEN 325 MG TABLET PO PRN (07:42)
[2020-06-10] MEDS: FERROUS SULFATE 325 MG TABLET PO SCH ×2 (07:42→16:54)
[2020-06-10] MEDS ORDERED: FERROUS SULFATE 325 MG TABLET PO SCH (08:00)
[2020-06-10] MEDS: METOPROLOL TARTRATE 25 MG TABLET PO SCH ×2 (09:03→21:16)
[2020-06-10] MEDS: amLODIPine 5 MG TABLET PO SCH (09:04)
--- NOTE | 2020-06-10 10:40 | CONSULTATION NOTE ---
Consultation Report: Call to [phone] for assist with peripheral IV placement after multiple failed attempts and history of difficult IV start. Need for PRBC's. 20ga 1.88" placed at R AC after attempt x2 with US. Unable to thread IV to hub, roughly 1/4 of cath remains superficial to skin. Flushes and aspirates easily after cap placed wioth Jloop. Secured. Pt tolerated the procedure well. RN notified.
[2020-06-10 14:57] LABS: BASOPHILS % (AUTO) 0.2 %; EOSINOPHILS % (AUTO) 0.1 %; HGB - HEMOGLOBIN 8.6 g/dL (12.0-16.0); LYMPHOCYTES # (AUTO) 1.3 10^3/uL (1.5-3.5); LYMPHOCYTES % (AUTO) 7.1 %; MEAN CORPUSCULAR HEMOGLOBIN 26.1 pg (27.0-31.0); MEAN CORPUSCULAR HGB CONC 30.2 g/dL (32.0-36.0); MEAN CORPUSCULAR VOLUME 86.6 fL (81.0-99.0); MEAN PLATELET VOLUME 9.5 fL (7.9-10.8); MONOCYTES # (AUTO) 0.6 10^3/uL (0.0-1.0); MONOCYTES % (AUTO) 3.6 %; NEUTROPHILS # (AUTO) 15.2 10^3/uL (1.5-6.6); NEUTROPHILS % (AUTO) 86.4 %; PLT - PLATELET COUNT 312 10^3/uL (130-450); RED BLOOD COUNT 3.29 10^6/uL (4.20-5.40); RED CELL DISTRIBUTION WIDTH 15.4 % (12.0-15.0); WHITE BLOOD COUNT 17.5 x10^3/uL (4.8-10.8)
--- NOTE | 2020-06-10 15:36 | PROVIDER PROGRESS NOTE ---
Subjective - Prog Note Date Prog Note Date: 06/10/20 - Subjective Subjective: She feels like her breathing continues to improve. She feels close to baseline now. Still has a little wheezing. Denies abdominal pain. She has not had a bowel movement yet. She once again denies a history of dark or bloody stools. Current Medications - Current Medications Current Medications: Active Medications Acetaminophen (Acetaminophen 325 Mg Tablet) 650 mg PO Q4HR PRN PRN Reason: Pain 1 to 4 Last Admin: 06/10/20 07:42 Dose: 650 mg Documented by: Albuterol (Albuterol Neb 2.5 Mg/3 Ml) 2.5 mg INH RTQ4H PRN PRN Reason: Wheezing Last Admin: 06/08/20 23:55 Dose: 2.5 mg Documented by: Albuterol/Ipratropium (Ipratropium/Albuterol 3 Ml Neb) 3 ml INH Q4H KEILY Last Admin: 06/10/20 15:18 Dose: 3 ml Documented by: Amlodipine Besylate (Amlodipine 5 Mg Tablet) 10 mg PO DAILY [facility] Last Admin: 06/10/20 09:04 Dose: 10 mg Documented by: Atorvastatin Calcium (Atorvastatin 10 Mg Tablet) 20 mg PO QPM [facility] Last Admin: 06/09/20 20:48 Dose: 20 mg Documented by: Ferrous Sulfate (Ferrous Sulfate 325 Mg Tablet) 325 mg PO BIDWM [facility] Last Admin: 06/10/20 07:42 Dose: 325 mg Documented by: Insulin Aspart (Insulin Aspart 300 Unit/3 Ml Pen) 1 - 9 unit SUBQ 0800,1200,1700,2100 [facility]; Protocol Last Admin: 06/10/20 11:39 Dose: 1 unit Documented by: Metoprolol Tartrate (Metoprolol Tartrate 25 Mg Tablet) 25 mg PO BID [facility] Last Admin: 06/10/20 09:03 Dose: 25 mg Documented by: Pantoprazole Sodium (Pantoprazole 40 Mg Vial) 40 mg IVP QDAC KEILY Prednisone (Prednisone 20 Mg Tablet) 40 mg PO DAILYWM [facility] Last Admin: 06/10/20 07:42 Dose: 40 mg Documented by: Sodium Chloride (Sodium Chloride Flush 0.9% 10 Ml Syringe) 10 ml IVP PRN PRN PRN Reason: NEEDED PER PROVIDER ORDERS Sodium Chloride (Sodium Chloride Flush 0.9% 10 Ml Syringe) 10 ml IVP 0100,0900,1700 [facility] Last Admin: 06/10/20 09:04 Dose: 10 ml Documented by: Cyclobenzaprine [Flexeril] 10 mg PO DAILY 06/04/20 Losartan [Cozaar] 50 mg PO DAILY 06/04/20 Metoprolol Tartrate [Lopressor] 25 mg PO BID 06/04/20 hydroCHLOROthiazide [Hydrodiuril] 12.5 mg PO DAILY 06/04/20 Amlodipine Besylate [Norvasc] 10 mg PO DAILY 06/09/20 Atorvastatin [Lipitor] 20 mg PO DAILY 06/09/20 Colchicine 0.6 mg PO .DAILY FOR 3 DAYS 06/09/20 Famotidine [Pepcid] 40 mg PO DAILY 06/09/20 Ferrous Sulfate 325 mg PO DAILY 06/09/20 Gabapentin [Neurontin] 100 mg PO DAILY 06/09/20 HYDROcodone/ACET 10/325 [[place] 10 mg/325 mg] 1 each PO BID PRN 06/09/20 Meloxicam [Mobic] 15 mg PO DAILY 06/09/20 Simvastatin [Zocor] 40 mg PO QPM 06/09/20 Objective - Vital Signs/Intake & Output Reviewed Vital Signs: Yes Vital Signs: Vital Signs x48h Temp Pulse Pulse Resp BP BP Pulse Ox 06/10/20 15:18 96 18 06/10/20 13:34 36.9 C 98 16 135/69 H 06/10/20 11:43 36.8 C 77 14 126/81 H 100 06/10/20 11:25 36.8 C 77 18 126/81 H 06/10/20 11:14 79 14 06/10/20 10:59 36.2 C L 84 20 152/93 H 06/10/20 09:03 142/92 H 06/10/20 08:29 91 20 06/10/20 07:46 37 C 98 14 138/87 H 95 Intake & Output: Intake & Output 06/07/20 06/08/20 06/09/20 06/10/20 23:59 23:59 23:59 23:59 Intake Total 2216.0 990 Output Total 2225 975 Balance -9.0 15 - Objective General Appearance: positive: No acute distress, Alert Eyes Bilateral: positive: Normal inspection, Conjunctivae nml ENT: positive: ENT inspection nml Neck: positive: Nml inspection Respiratory: positive: No respiratory distress, Wheezes (Faint expiratory wheezes.). negative: Rales Cardiovascular: positive: Regular rate & rhythm. negative: Irregularly irregular, Tachycardia, Systolic murmur Abdomen: positive: Non-tender, No distention. negative: Tenderness Skin: positive: Warm, Dry Extremities: positive: No pedal edema Neurologic/Psychiatric: positive: Oriented x3 - Lab Results Fish Bones: 06/10/20 14:53 06/10/20 04:34 Other Labs: Lab Results x24hrs 06/10/20 06/10/20 06/10/20 Range/Units 14:53 13:50 11:23 WBC 17.5 H (4.8-10.8) x10^3/uL RBC 3.29 L (4.20-5.40) 10^6/uL Hgb 8.6 L (12.0-16.0) g/dL Hct 28.5 L (37.0-47.0) % MCV 86.6 (81.0-99.0) fL MCH 26.1 L (27.0-31.0) pg MCHC 30.2 L (32.0-36.0) g/dL RDW 15.4 H (12.0-15.0) % Plt Count 312 (130-450) 10^3/uL MPV 9.5 (7.9-10.8) fL Neut # (Auto) 15.2 H (1.5-6.6) 10^3/uL Lymph # (Auto) 1.3 L (1.5-3.5) 10^3/uL [place] # (Auto) 0.6 (0.0-1.0) 10^3/uL Eos # (Auto) 0.0 (0.0-0.7) 10^3/uL Baso # (Auto) 0.0 (0.0-0.1) 10^3/uL Absolute Nucleated RBC 0.16 x10^3/uL Nucleated RBC % 0.9 /100WBC Sodium (135-145) mmol/L Potassium (3.5-5.0) mmol/L Chloride (101-111) mmol/L Carbon Dioxide (21-32) mmol/L Anion Gap (6-13) BUN (6-20) mg/dL Creatinine (0.4-1.0) mg/dL Estimated GFR (MDRD) (>89) Glucose (70-100) mg/dL POC Whole Bld Glucose 154 H (70 - 100) mg/dL Calcium (8.5-10.3) mg/dL Folate (5.90 - >24.8) ng/mL Stl Occult Blood (IFOB) POSITIVE A (NEGATIVE) Blood Type Antibody Screen Crossmatch IS Only 06/10/20 06/10/20 06/10/20 Range/Units 07:17 04:34 04:34 WBC (4.8-10.8) x10^3/uL RBC (4.20-5.40) 10^6/uL Hgb (12.0-16.0) g/dL Hct (37.0-47.0) % MCV (81.0-99.0) fL MCH (27.0-31.0) pg MCHC (32.0-36.0) g/dL RDW (12.0-15.0) % Plt Count (130-450) 10^3/uL MPV (7.9-10.8) fL Neut # (Auto) (1.5-6.6) 10^3/uL Lymph # (Auto) (1.5-3.5) 10^3/uL [place] # (Auto) (0.0-1.0) 10^3/uL Eos # (Auto) (0.0-0.7) 10^3/uL Baso # (Auto) (0.0-0.1) 10^3/uL Absolute Nucleated RBC x10^3/uL Nucleated RBC % /100WBC Sodium 137 (135-145) mmol/L Potassium 4.3 (3.5-5.0) mmol/L Chloride 105 (101-111) mmol/L Carbon Dioxide 25 (21-32) mmol/L Anion Gap 7.0 (6-13) BUN 13 (6-20) mg/dL Creatinine 0.8 (0.4-1.0) mg/dL Estimated GFR (MDRD) 93 (>89) Glucose 142 H (70-100) mg/dL POC Whole Bld Glucose 133 H (70 - 100) mg/dL Calcium 8.8 (8.5-10.3) mg/dL Folate 6.20 (5.90 - >24.8) ng/mL Stl Occult Blood (IFOB) (NEGATIVE) Blood Type Antibody Screen Crossmatch IS Only 06/10/20 06/09/20 06/09/20 Range/Units 04:34 20:45 16:31 WBC 16.0 H (4.8-10.8) x10^3/uL RBC 2.72 L (4.20-5.40) 10^6/uL Hgb 7.0 L* (12.0-16.0) g/dL Hct 23.4 L (37.0-47.0) % MCV 86.0 (81.0-99.0) fL MCH 25.7 L (27.0-31.0) pg MCHC 29.9 L (32.0-36.0) g/dL RDW 15.6 H (12.0-15.0) % Plt Count 298 (130-450) 10^3/uL MPV 10.1 (7.9-10.8) fL Neut # (Auto) 13.7 H (1.5-6.6) 10^3/uL Lymph # (Auto) 1.2 L (1.5-3.5) 10^3/uL [place] # (Auto) 0.7 (0.0-1.0) 10^3/uL Eos # (Auto) 0.0 (0.0-0.7) 10^3/uL Baso # (Auto) 0.0 (0.0-0.1) 10^3/uL Absolute Nucleated RBC 0.17 x10^3/uL Nucleated RBC % 1.1 /100WBC Sodium (135-145) mmol/L Potassium (3.5-5.0) mmol/L Chloride (101-111) mmol/L Carbon Dioxide (21-32) mmol/L Anion Gap (6-13) BUN (6-20) mg/dL Creatinine (0.4-1.0) mg/dL Estimated GFR (MDRD) (>89) Glucose (70-100) mg/dL POC Whole Bld Glucose 187 H 150 H (70 - 100) mg/dL Calcium (8.5-10.3) mg/dL Folate (5.90 - >24.8) ng/mL Stl Occult Blood (IFOB) (NEGATIVE) Blood Type Antibody Screen Crossmatch IS Only 06/09/20 Range/Units 08:17 WBC (4.8-10.8) x10^3/uL RBC (4.20-5.40) 10^6/uL Hgb (12.0-16.0) g/dL Hct (37.0-47.0) % MCV (81.0-99.0) fL MCH (27.0-31.0) pg MCHC (32.0-36.0) g/dL RDW (12.0-15.0) % Plt Count (130-450) 10^3/uL MPV (7.9-10.8) fL Neut # (Auto) (1.5-6.6) 10^3/uL Lymph # (Auto) (1.5-3.5) 10^3/uL [place] # (Auto) (0.0-1.0) 10^3/uL Eos # (Auto) (0.0-0.7) 10^3/uL Baso # (Auto) (0.0-0.1) 10^3/uL Absolute Nucleated RBC x10^3/uL Nucleated RBC % /100WBC Sodium (135-145) mmol/L Potassium (3.5-5.0) mmol/L Chloride (101-111) mmol/L Carbon Dioxide (21-32) mmol/L Anion Gap (6-13) BUN (6-20) mg/dL Creatinine (0.4-1.0) mg/dL Estimated GFR (MDRD) (>89) Glucose (70-100) mg/dL POC Whole Bld Glucose (70 - 100) mg/dL Calcium (8.5-10.3) mg/dL Folate (5.90 - >24.8) ng/mL Stl Occult Blood (IFOB) (NEGATIVE) Blood Type B POSITIVE Antibody Screen NEGATIVE Crossmatch IS Only See Detail ABX Reporting Has patient been on IV antibiotics over the past 48 hours?: No Assessment/Plan - Problem List (1) Iron deficiency anemia Impression: She was still anemic this morning at 7.0 despite getting a transfusion yesterday. This was not an appropriate response given a hemoglobin of 6.7 prior to transfusion. There has been no evidence of bleeding. Her iron studies were suggestive of iron deficiency and she was given IV iron yesterday and continued on her oral iron today. She was given a unit of packed red blood cell today and her hemoglobin is improved to 8.6. I am concerned for possible ongoing bleeding given her stool is positive for occult blood. We will continue to observe her overnight and if her hemoglobin is stable tomorrow morning then she can likely be discharged. If her hemoglobin continues to decline then we we will ask general surgery to proceed with EGD. Qualifiers: Iron deficiency anemia type: chronic blood loss Qualified Code(s): D50.0 - Iron deficiency anemia secondary to blood loss (chronic) (2) Heavy menstrual bleeding Impression: She reports history of heavy menstrual cycles and that this previous cycle was heavier than usual. She states it did and 2 days ago and she is not had any further bleeding. We did discuss [employer] referral and she states she is scheduled to see one in [place] when she returns. Could be the source of her iron deficiency anemia but given her stool is positive for occult blood, we will observe her as mentioned above. Qualifiers: Menorrhagia type: with regular cycle Qualified Code(s): N92.0 - Excessive and frequent menstruation with regular cycle (3) Asthma exacerbation Impression: This is significantly improved. She is stable for discharge from a respiratory standpoint. We will continue prednisone for a few more days. Continue with albuterol [id number]. She will need an inhaled corticosteroid on discharge. Qualifiers: Asthma severity: moderate Asthma persistence: persistent Qualified Code(s): J45.41 - Moderate persistent asthma with (acute) exacerbation (4) Positive occult stool blood test Impression: Her stool is positive for occult blood. She is no longer on her menstrual cycle, I suspect this is not a false positive. Given she is also anemic and req uired 2 units of packed red blood cell and has never required transfusion in the past, we will continue to observe her overnight to ensure her hemoglobin is stable. If her hemoglobin declines and she will need endoscopy tomorrow otherwise this can be done on an outpatient basis. We will make her n.p.o. at midnight in case she does need endoscopy. (5) Leukocytosis Impression: Suspect this is likely related to her steroids. There has been no evidence of infection and she is fever free. We will continue to monitor. No indication for antibiotics. (6) Type 2 diabetes mellitus Impression: Stable. Continue with sliding scale. Carb controlled diet. (7) Hypertension Impression: Her blood pressure stable. Continue her home antihypertensives.
[2020-06-10] MEDS: PANTOPRAZOLE 40 MG VIAL IVP SCH (16:13)
[2020-06-10] MEDS ORDERED: SODIUM CHLORIDE 0.9% 500 ML IV PRN (16:34)
[2020-06-10] MEDS ORDERED: guaiFENesin 100 MG/5 ML UDC PO PRN (17:21)
[2020-06-10] MEDS: BENZONATATE 100 MG CAPSULE PO PRN (17:53)
[2020-06-10] MEDS: ATORVASTATIN 10 MG TABLET PO SCH (21:16)
[2020-06-11] MEDS: IPRATROPIUM/ALBUTEROL 3 ML NEB INH SCH ×3 (00:07→08:09)
[2020-06-11] MEDS: SODIUM CHLORIDE FLUSH 0.9% 10 ML SYRINGE IVP SCH ×2 (00:55→08:29)
[2020-06-11] MEDS: BENZONATATE 100 MG CAPSULE PO PRN (03:23)
[2020-06-11 05:27] LABS: BASOPHILS % (AUTO) 0.3 %; EOSINOPHILS # (AUTO) 0.2 10^3/uL (0.0-0.7); EOSINOPHILS % (AUTO) 1.4 %; HGB - HEMOGLOBIN 8.6 g/dL (12.0-16.0); LYMPHOCYTES # (AUTO) 2.7 10^3/uL (1.5-3.5); LYMPHOCYTES % (AUTO) 18.4 %; MEAN CORPUSCULAR HEMOGLOBIN 26.7 pg (27.0-31.0); MEAN CORPUSCULAR HGB CONC 30.4 g/dL (32.0-36.0); MEAN CORPUSCULAR VOLUME 87.9 fL (81.0-99.0); MEAN PLATELET VOLUME 9.3 fL (7.9-10.8); MONOCYTES % (AUTO) 6.4 %; NEUTROPHILS # (AUTO) 10.5 10^3/uL (1.5-6.6); NEUTROPHILS % (AUTO) 71.1 %; PLT - PLATELET COUNT 292 10^3/uL (130-450); RED BLOOD COUNT 3.22 10^6/uL (4.20-5.40); RED CELL DISTRIBUTION WIDTH 15.7 % (12.0-15.0); WHITE BLOOD COUNT 14.8 x10^3/uL (4.8-10.8)
[2020-06-11 05:31] LABS: CALCIUM 8.8 mg/dL (8.5-10.3); CREATININE 0.8 mg/dL (0.4-1.0)
[2020-06-11] MEDS: PANTOPRAZOLE 40 MG VIAL IVP SCH (06:13)
[2020-06-11] MEDS: INSULIN ASPART 300 UNIT/3 ML PEN SUBQ SCH (07:26)
[2020-06-11 07:45] VITALS: BP 146/87
--- NOTE | 2020-06-11 08:11 | Discharge Plan ---
Discharge Plan Problem Reviewed?: Yes Disposition: Home, Self Care Condition: Fair Prescriptions: Ferrous Sulfate 325 mg PO BID #60 Methylprednisolone [Medrol Dose Pack] 1 each PO .PACKAGEINSTRUCTIONS 6 Days #1 each Pantoprazole [Protonix] 40 mg PO BID #60 tablet Diet: Diabetic Activity Restrictions: Activity as Tolerated Shower Restrictions: No Driving Restrictions: No Health Concerns: You were admitted for hospitalization due to asthmatic exacerbation and severe anemia. The asthma has improved. You are being prescribed a Medrol Dose-Basil (steroid pills to taper down), for your asthma. Resume your inhalers. You needed blood transfusions for the anemia and we tested your stool and found it to test positive for blood. Therefore you need further work-up for the anemia, specifically you need upper and lower endoscopies. Since you are traveling back to [place] tomorrow, please have those done ÁLVARO when you get home (call your PCP for a hospital follow-up and for referral to a GI specialist). Resume all your pre-hospital medications EXCEPT STOP THE COLCHICINE AND MOBIC, as both can cause bleeding stomach ulcers. Take your IRON replacement pills TWICE A DAY. Also, you have been prescribed an ulcer medication called Protonix (in case the source was a bleeding ulcer). While you are taking Protonix, STOP THE PEPCID. The new prescriptions (of Medrol and Protonix) were electronically sent to the [facility] pharmacy in [place], [place]. Please pick those up today. Plan of Treatment: As above. Care Goals: Improvement in symptoms and stabilization are the goals. Assessment: The patient understands and is agreeable with the plan. No Smoking: If you smoke, Please STOP! Call for help.
[2020-06-11] MEDS: predniSONE 20 MG TABLET PO SCH (08:28)
[2020-06-11] MEDS: amLODIPine 5 MG TABLET PO SCH (08:28)
[2020-06-11] MEDS: METOPROLOL TARTRATE 25 MG TABLET PO SCH (08:28)
[2020-06-11] MEDS: FERROUS SULFATE 325 MG TABLET PO SCH (08:28)
--- NOTE | 2020-06-11 08:50 | DISCHARGE SUMMARY ---
Discharge Summary Admit Date: 06/08/20 Discharge Date: 06/11/20 Discharging Provider: Dr Joie Veronica Primary Care Provider: Out of state, in [place] Code Status: Attempt Resuscitation Condition at Discharge: Fair Discharge Disposition: 01 Home, Self Care - HPI History of Present Illness: From the admission H&P of Dr Clarissa Neumann: Patient is a 45-year-old female with medical history significant for asthma, diabetes mellitus, hypertension and diabetic neuropathy who presented to the ED with complaint of dyspnea and wheezing. Her symptoms initially started on Wednesday (4 days ago). She presented to the ED then, where she received treatment, felt better and was discharged home. She was advised to return if her symptoms worsened again. Today around 3 PM she started experiencing dyspnea again which did not improve with Albuterol inh. at home. As a result she returned to the ED. She was given Decadron 20 mg, DuoNeb and albuterol x2 however she remained significantly wheezy on auscultation of the lungs. She is visiting her son in [facility] and is originally from [place]. She thinks the sudden climate change is a stressor to her system and triggering her exacerbations. Also she is out of her Dulera and intends to get a refill when she returns home in 4 days. At bedside she is awake and resting comfortably. She denies chest pain, abdominal pain, nausea, vomiting, fever or chills. She will be brought in for management of asthma that has failed outpatient therapy. - HOSPITAL COURSE Hospital Course: (1) Asthma exacerbation She had failed outpatient therapy. Here, she was put on IV steroids, Albuterol nebulizer and inhaled corticosteroid treatments via nebulizer. At discharge, she was prescribed a Medrol Dosepak for a taper to off, of oral steroids. Her home inhaler schedule was advised to be resumed at discharge. (2) Iron deficiency anemia Her admission hemoglobin was 7.1 which dropped to 6.7 and she then received 1 unit of blood transfused. She was still anemic, with Hgb 7.0 despite getting that transfusion. This was not an appropriate response from 6.7. There had been no evidence of bleeding. Anemia studies were done that showed adequate B12 and Folate levels but showed iron deficiency and she was given IV iron plus continued on her oral iron today. She was given another unit of packed red blood cell and her hemoglobin improved to 8.6. It was stable at 8.6 the next morning and she was discharged. (3) Positive occult stool blood test Her stool was tested and was positive for occult blood. Given she was so anemic and required 2 units of packed red blood cell and has never required transfusion in the past, we continued to observe her to ensure her hemoglobin was stable, which it was. She will need upper and lower endoscopy done on an outpatient basis. She was treated with empiric IV Protonix while here. At discharge, Protonix 40 mg p.o. twice daily was ordered and hold the Pepcid, and stop Mobic and Colchicine was advised. (4) Heavy menstrual bleeding She reported a history of heavy menstrual cycles and that this previous cycle was heavier than usual. She is no longer on her menstrual cycle. We did discuss [facility] referral and she states she is scheduled to see one in [place] when she returns. This could also be a source of her iron deficiency anemia. (5) Leukocytosis WBC was 11.9>> 16>> 17.5 and we suspected this was likely related to her steroids. There was no evidence of infection and she was fever free. There was no indication for antibiotic use. On the day of discharge, WBC had improved to 14.5. (6) Type 2 diabetes mellitus She was on a carb-controlled diet and sliding scale Reg Insulin coverage. Her glu were running 130-180. (7) Hypertension Her blood pressure was stable. We continued her home antihypertensives. - ALLERGIES Allergies/Adverse Reactions: Allergies Allergy/AdvReac Type Severity Reaction Status Date / Time pollen extracts Allergy Mild Hives Verified 06/08/20 18:44 chicken derived Allergy Respiratory Verified 06/08/20 18:44 ketchup Allergy Respiratory Verified 06/08/20 18:44 mustard Allergy Respiratory Verified 06/08/20 18:44 pineapple Allergy Respiratory Verified 06/08/20 18:44 shellfish derived Allergy Respiratory Verified 06/08/20 18:44 - MEDICATIONS Home Medications: Ambulatory Orders Medication Instructions Recorded Confirmed Albuterol 2.5 mg INH Q4H PRN #30 neb 06/04/20 Albuterol Sulfate [Proair Hfa 1 - 2 puffs INH Q4H PRN #1 inhaler 06/04/20 Inhaler] Cyclobenzaprine [Flexeril] 10 mg PO DAILY 06/04/20 06/04/20 Losartan [Cozaar] 50 mg PO DAILY 06/04/20 Metoprolol Tartrate [Lopressor] 25 mg PO BID 06/04/20 hydroCHLOROthiazide [Hydrodiuril] 12.5 mg PO DAILY 06/04/20 06/04/20 Amlodipine Besylate [Norvasc] 10 mg PO DAILY 06/09/20 Atorvastatin [Lipitor] 20 mg PO DAILY 06/09/20 Gabapentin [Neurontin] 100 mg PO DAILY 06/09/20 HYDROcodone/ACET 10/325 [Gaastra 10 1 each PO BID PRN 06/09/20 06/09/20 mg/325 mg] Ferrous Sulfate 325 mg PO BID #60 06/11/20 Methylprednisolone [Medrol Dose 1 each PO .PACKAGEINSTRUCTIONS 6 06/11/20 Pack] Days #1 each Pantoprazole [Protonix] 40 mg PO BID #60 tablet 06/11/20 - PHYSICAL EXAM AT DISCHARGE General Appearance: positive: No acute distress, Alert Eyes Bilateral: positive: Normal inspection, EOMI ENT: positive: ENT inspection nml, No signs of dehydration Neck: positive: Nml inspection, No JVD Respiratory: positive: No respiratory distress, Breath sounds nml Cardiovascular: positive: Regular rate & rhythm, No murmur Abdomen: positive: Non-tender, No distention Skin: positive: Warm, Dry Extremities: positive: No pedal edema Neurologic/Psychiatric: positive: Oriented x3, Motor nml - LABS Result Diagrams: 06/11/20 03:15 06/11/20 03:15 - DIAGNOSTIC IMAGING Diagnostic Imaging Results: Final report reviewed - FOLLOW UP Follow Up: See PCP for hospital follow up ÁLVARO, once returned home to [place] (flight is tomorrow). - TIME SPENT Time Spent in Discharge (Minutes): 45
== END 2020-06-11 10:05 | disposition home or self-care (01) ==
LOC: ED 18:21 → MS2 21:55
PROVIDERS: ADMIT Internal Medicine; ATTEND Internal Medicine
DX: J45.41 Moderate persistent asthma with (acute) exacerbation (principal); D50.9 Iron deficiency anemia, unspecified; N92.0 Excessive and frequent menstruation with regular cycle; R19.5 Other fecal abnormalities; E11.40 Type 2 diabetes mellitus with diabetic neuropathy, unspecified; I50.9 Heart failure, unspecified; E03.9 Hypothyroidism, unspecified; Z79.51 Long term (current) use of inhaled steroids; Z79.52 Long term (current) use of systemic steroids; Z79.84 Long term (current) use of oral hypoglycemic drugs; Z79.899 Other long term (current) drug therapy; Z91.19 Patient's noncompliance with other medical treatment and regimen
CPT/HCPCS: 0202U; 36415; 36430; 71045; 80048; 80053; 82274; 82607; 82746; 83540; 83690; 83880; 84466; 85014; 85018; 85025; 86850; 86900; 86901; 86920; 93005; 94640; 96365; 96366; 96372; 96375; 96376; 99285; A9270; G0378; J1650; J1750; J7040; J7512; P9016